=== PATIENT | male | born 1995 | race Caucasian/White ===

== ENCOUNTER 2017-05-07 06:08 | Day surgery (SDC) | payer OTHER ==
[~2017-05-07] VITALS: Ht 172.7 cm; Wt 88.0 kg
--- NOTE | 2017-05-07 08:20 | Operative Note ---
Surgeon/Diagnoses Surgeon/[employer] Log[employer] Analyst(s) Date of procedure: 05/07/17 Surgeon: Unruly Mckeon Diagnoses Pre-op diagnosis: Pilonidal cyst without abscess Post-op diagnosis Same Procedure Procedure Procedure: Excision of pilonidal cyst with closure Indications: MARGE MORELAND is a 21 year-old Male with a history of nodule over the tailbone area for about a year and a half. It is occasionally tender and occasionally enlarges in size. Never had signs of infection however. Is worse when he is exercising. He did have an MRI which showed a well-circumscribed cystic lesion. He was sent for surgical consultation. It was felt that this was likely a pilonidal cyst but was rather unusual in character and rather well circumscribed and mobile. Plan was made for excision. Findings: Consistent with not abscessed noninfected pilonidal cyst. Procedure Description: Consent was obtained the patient was taken to the operating room. He underwent induction of general anesthesia via endotracheal tube. He was positioned in prone position. The area was prepped and draped in the standard surgical fashion. There was a small punctate sinus consistent with pilonidal sinus overlying the palpable nodule. Very small elliptical incision was made and dissection was carried down through subcutaneous tissues sharply. The overlying skin ellipse with the punctum was elevated and there was a well-circumscribed cystic lesion attached. This was dissected free from the normal subcutaneous tissues using sharp dissection. No sent off table as specimen. Wound was thoroughly irrigated. Hemostasis was achieved with judicious use of electrocautery. Local anesthetic was infiltrated. Incision was closed with interrupted 3-0 nylon horizontal mattress sutures. Dermabond was applied. Clean dry sterile dressing was applied. EBL (ml): 15 Anesthesia: GETA Specimens: Pilonidal Cyst Disposition Disposition: To PACU at 0820
--- NOTE | 2017-05-07 08:33 | Anesthesia Record ---
Anesthesia Record Part I Total IV fluids: 1000 EBL (ml): 10 Urine Output: 0 B/P: 124/75 % SaO2: 94 Pulse: 78 Resps: 16 Temp: 97.4 Patient is: Drowsy, Stable Stable to PACU at: 0831 at 0833
--- NOTE | 2017-05-07 08:33 | Anesthesia Record ---
Anesthesia Record Part II Discharge time: 900 Destination: Same day surgery PACU nurse assessment review? Yes Patient is: Stable Anesthesia complications? No at 0822
--- NOTE | 2017-05-07 08:33 | Anesthesia Record ---
Anesthesia Record Part II Discharge time: 900 Destination: Same day surgery PACU nurse assessment review? Yes Patient is: Stable Anesthesia complications? No at 0884
[2017-05-07 11:07] VITALS: BP 128/84
== END 2017-05-07 09:40 | disposition home or self-care (01) ==
LOC: SDC 06:08
PROVIDERS: Surgery
PROC: 0JB90ZZ Excision of Buttock Subcutaneous Tissue and Fascia, Open Approach (ICD-10-PCS; principal; 2017-05-07 07:30)
DX: L05.91 Pilonidal cyst without abscess (principal)
CPT/HCPCS: S0077